=== PATIENT | male | born 1975 | race Asian ===

== ENCOUNTER 2023-03-16 10:48 | Inpatient (IN) | payer BC, SELFPAY ==
[2023-02-25 09:01] VITALS: BMI 26.3
[2023-02-25 10:07] LABS: % Basophils 0.8 % (0-2); % Eosinophils 0.8 % (0-6); % Immature Granulocytes 0.5 % (0-0.5); % Lymphocytes 12.1 % (20.5-51.1); % Monocytes 6.4 % (1.7-9.3); % Neutrophils 79.4 % (42.2-75.2); Absolute Basophils 0.1 10^3/uL (0-0.2); Absolute Eosinophils 0.1 10^3/uL (0-0.7); Absolute Lymphocytes 1.1 10^3/uL (1.2-3.4); Absolute Monocytes 0.6 10^3/uL (0.1-0.6); Absolute Neutrophils 6.9 10^3/uL (1.4-6.5); Hematocrit 46.4 % (39.0-52.0); Mean Corp Hgb Conc. 34.5 g/dL (33.0-37.0); Mean Corpuscular Hgb 30.6 pg (27.0-31.0); Mean Corpuscular Volume 88.7 fL (80.0-94.0); Mean Platelet Volume 10.5 fL (7.4-10.4); Nucleated Red Blood Cells % 0 % (-); Platelet Count 174 10^3/uL (130-400); Red Blood Cell Count 5.23 10^6/uL (4.70-6.10); White Blood Cell Count 8.7 10^3/uL (4.8-10.8)
[2023-02-25 10:14] LABS: INR 1.15
[2023-02-25 10:18] LABS: ALT (SGPT) 45 U/L (0-50); AST (SGOT) 36 U/L (17-59); Albumin 4.4 g/dl (3.5-5.0); Alkaline Phosphatase 57 U/L (38-126); Blood Urea Nitrogen 17 mg/dl (9-20); Calcium 9.8 mg/dl (8.4-10.2); Carbon Dioxide 30 mmol/L (22-30); Chloride 100 mmol/L (98-107); Estimated Creatinine Clearance 106 ml/min; Glucose 97 mg/dl (70-99); Magnesium 2.1 mg/dl (1.6-2.3); Potassium 4.3 mmol/L (3.5-5.1); Sodium 138 mmol/L (135-145); Total Protein 7.2 g/dl (6.3-8.2); eGFR > 60.00
[2023-03-16] VITALS (23 sets, daily range): BP systolic 96–148; BP diastolic 56–97; BMI 24.4
[2023-03-16 08:56] LABS: ACT-LR - POC 353 Seconds (116-155)
[2023-03-16 09:13] LABS: ACT-LR - POC 340 Seconds (116-155)
[2023-03-16 09:31] LABS: ACT-LR - POC 368 Seconds (116-155)
[2023-03-16 10:00] LABS: ACT-LR - POC 210 Seconds (116-155)
--- NOTE | 2023-03-16 11:32 | ITS.EPS ---
Special Projects Manager - EPS Report
EPS
Procedure Report:
ELECTROPHYSIOLOGY REPORT
Date of Procedure: 03/16/23
Primary Care Provider: Rosalee Cotton MD
Primary lifter/driver: Dr Chidi Shaikh
INDICATION:
Recurrent sustained hemodynamically unstable ventricular tachycardia/ventricular fibrillation.
HISTORY:
CAD w/prior LAD stenting (2000, ).
Recent Anterior STEMI (09/25/22) complicated by at home VF arrest with prolonged CPR and multiple defibrillation attempts before ROSC.
Uncertain if primary event was acute myocardial infarction or if this was secondary event after arrhythmic ventricular arrest.
Emergently brought [facility] and ultimately to director geophysical laboratory- mid LAD 100% occlusion/in-stent restenosis, s/p thrombectomy/prox and distal LAD KYLEIGH x2 on 09/25/22. Left main is noted to have 10 to 20% disease, left circumflex nondominant with 10 to 20% diffuse
disease. The right coronary artery is a large-caliber dominant vessel with 10 to 20% diffuse disease noted. He had been intubated and on hypothermia protocol, eventually stabilized and d/c home on 09/29.
Outpatient followup in cardiology office on 10/06. Later that evening, he had a witnessed syncopal event at home, where he was unresponsive and performed CPR for 1 minute before he became responsive. Returned to [facility] ER and while on tele,
developed pulseless VT/Torsades (10/10). CPR was performed and ROSC was achieved. IV amiodarone bolus with drip started. He was transferred to for ICD implant 10/12/22.
He experienced syncope in the setting of recurrent sustained ventricular tachycardia on January 14, 2023 with fast VT/VF over 222 bpm treated with attempted antitachycardia pacing which was unsuccessful followed by a successful 40 J shock. He was
seen and treated at [facility]. Ultimately amiodarone was stopped and he has since been on sotalol at 80 mg twice daily.�
Review of available strips of his events suggest PVC induced VT and polymorphic VT.
�- 2D Echo- (10/11/22)- nml LVSF, EF 50-55%, mild symmetric LVH, mid/apical anterior septal HK, no sig valvular disease
�-Echocardiogram January 10, 2023 shows normal left ventricular size and function with ejection fraction of 55 to 60% and no wall motion abnormality.
He experienced ventricular tachycardia again on March 09, 2023. Review of available electrograms finds PVC resulting in a slight pause for resuming pacing followed by a PVC which triggers ventricular tachycardia. First attempt at ATP fails to
terminate the tachycardia, second attempt transition to tachycardia to ventricular fibrillation which was successfully treated with ICD shock. Of note, he was on sotalol 80 mg twice a day, compliant.
He has had no chest pain.
PROCEDURE:
Medtronic dual-chamber ICD was interrogated and found to have normal function. Ventricular arrhythmia detection was programmed off
Ultrasound Guidance performed by nd was utilized for femoral arterial and venous access.
Intracardiac echocardiogram ([facility]) was utilized for real-time echocardiographic imaging. Echocardiographic imaging finds no wall motion abnormality.
Once arterial access was obtained, heparin was initiated with bolus and infusion to achieve ACT of 350 ms then the Apps[employer] multipolar grid catheter was positioned through the Agilis sheath and navigated to the ascending aorta and then across the
aortic valve into the left ventricular cavity. Extensive high definition mapping via the Grid multipolar catheter and Navex three-dimensional mapping was utilized to create an extensive voltage and activation map in sinus rhythm. There is normal
activation and normal voltages throughout the left ventricular cavity. Care was taken to obtain multiple points along the anterior lateral papillary muscle area and this was all normal.
Next programmed electrical stimulation was performed and with double extrastimuli at [address] cycle lengths there were no inducible arrhythmias. With triple extrastimuli only ventricular fibrillation could be induced, no sustained
ventricular arrhythmias. Next, a new voltage and activation map was performed with ventricular pacing to compare to activation in sinus rhythm. Activation maps remain stable, normal with no areas of slow conduction being identified in either sinus
rhythm or with ventricular pacing at 90 bpm. Next isoproterenol infusion at escalating dose was administered to attempt to elicit spontaneous PVCs which may act as triggers for his arrhythmias but despite escalating dose isoproterenol, only rare
PVCs were observed and these correlated to catheter bump, not spontaneous or drug-induced PVCs. No PVC see trigger for VT or VF was found.
Medtronic dual-chamber ICD was reinterrogated and found to have normal function, ventricular arrhythmia detection was programmed on an original preablation parameters were reprogrammed on. Additional reprogramming of VT and VF therapies with longer
intervals to detect as patient has had nonsustained VT in the past and also reprogramming to more aggressive ATP attempts.
Fluoroscopically there is no change in the appearance of the leads.
Conclusions:
Findings of normal left ventricular function and wall motion with I.C.E. and normal LV activation and voltage with no inducible arrhythmias in baseline state or with isoproterenol infusion.
COMPLICATIONS: None
SUMMARY:
EPS
EPS with drug infusion
Intracardiac echocardiogram
Interrogation and reprogramming of ICD
RECOMMENDATIONS:
-Consider procainamide challenge to evaluate for Brugada syndrome as his baseline EKG is abnormal and suggestive of type II Brugada. However EKG evaluation has been complicated by the fact that he recently had ST segment elevation anterior wall
myocardial infarction.
-Consider Admit for sotalol reloading.
Sotalol was discontinued 72 hours prior to today's procedure.
-Check cardiac MRI
-Overall uncertain regarding etiology of his ventricular arrhythmias. ECGs have not had findings obvious for abnormal ion channel function. Furthermore in retrospect I wonder if his initiating event in September was VT VF resulting in restenosis of
his prior LAD stent and anterior wall KS rather than an initial ischemic/infarct event initiating ventricular arrhythmia because he continues to have ventricular arrhythmias despite revascularization and no evidence to suggest abnormal left
ventricular substrate from infarct/ischemia.
-He may benefit from genetic testing.
Copy to:
Rosalee Cotton MD
Dr Chidi Shaikh
[2023-03-16] MEDS: BETAPACE 120 MG PO ×2 (11:43→22:00)
--- NOTE | 2023-03-16 14:11 | SUR.OPER ---
Procainimide challenge
Pt underwent testing for QT prolongation and brugada syndrome. pt received procainimide infusion, no brugada pattern observed. pt vss throughout infusion. QT prolongation observed and resolving at procedure end. at bedside to review ekg. pt. in
stable condition.
[2023-03-16] MEDS: PRONESTYL 102 MG IV (16:16)
--- NOTE | 2023-03-16 16:26 | CM ---
Chart reviewed. Patient is independent of ADLS, lives with his in a 2 [address], 2 PORTER, 0 DME. Patient currently with no discharge needs. Plan is for the patient to return home. CM to follow
--- NOTE | 2023-03-16 17:06 | ITS.EPS ---
Vp Training - EPS Report
EPS
Procedure Report:
Procedure:
Drug infusion
Date:
March 16, 2023
Indication:
Recurrent sustained ventricular tachycardia/ventricular fibrillation.
History:
CAD w/prior LAD stenting (2000, [place]).
Recent Anterior STEMI (09/25/22) complicated by at home VF arrest with prolonged CPR and multiple defibrillation attempts before ROSC.
Uncertain if primary event was acute myocardial infarction or if this was secondary event after arrhythmic ventricular arrest.
Emergently brought [facility] and ultimately to [employer] [facility]- mid LAD 100% occlusion/in-stent restenosis, s/p thrombectomy/prox and distal LAD KYLEIGH x2 on 09/25/22. Left main is noted to have 10 to 20% disease, left circumflex nondominant with 10 to 20% diffuse
disease. The right coronary artery is a large-caliber dominant vessel with 10 to 20% diffuse disease noted. He had been intubated and on hypothermia protocol, eventually stabilized and d/c home on 09/29.
Outpatient followup in cardiology office on 10/06. Later that evening, he had a witnessed syncopal event at home, where he was unresponsive and performed CPR for 1 minute before he became responsive. Returned to [facility] ER and while on tele,
developed pulseless VT/Torsades (10/10). CPR was performed and ROSC was achieved. IV amiodarone bolus with drip started. He was transferred to for ICD implant 10/12/22.
He experienced syncope in the setting of recurrent sustained ventricular tachycardia on January 14, 2023 with fast VT/VF over 222 bpm treated with attempted antitachycardia pacing which was unsuccessful followed by a successful 40 J shock. He was
seen and treated at [facility]. Ultimately amiodarone was stopped and he has since been on sotalol at 80 mg twice daily.�
Review of available strips of his events suggest PVC induced VT and polymorphic VT.
�- 2D Echo- (10/11/22)- nml LVSF, EF 50-55%, mild symmetric LVH, mid/apical anterior septal HK, no sig valvular disease
�-Echocardiogram January 10, 2023 shows normal left ventricular size and function with ejection fraction of 55 to 60% and no wall motion abnormality.
He experienced ventricular tachycardia again on March 09, 2023.� Review of available electrograms finds PVC resulting in a slight pause for resuming pacing followed by a PVC which triggers ventricular tachycardia.� First attempt at ATP fails to
terminate the tachycardia, second attempt transition to tachycardia to ventricular fibrillation which was successfully treated with ICD shock.� Of note, he was on sotalol 80 mg twice a day, compliant.
He has had no chest pain.
At EP study today he is noninducible, there is no electrophysiologic abnormal substrate with detailed left ventricular mapping, there is no arrhythmia induction on escalating dose isoproterenol infusion.
He presents now for procainamide drug infusion as there is enough of a concern for Brugada pattern EKG to assess response to procainamide/potential Brugada diagnosis.
Admittedly however, EKG in the precordial leads abnormality confounded by recent/subacute ST segment elevation anterior wall myocardial infarction from LAD stent restenosis.
Procedure:
During continuous twelve-lead ECG monitoring using high precordial leads with V1 and V2 placed high at the second intercostal space and lead V3 and V4 placed at the fourth intercostal space parasternally, procainamide infusion of 1 g over 30
minutes was performed. Continuous twelve-lead ECG was observed. Results were mild expected QT interval prolongation maxing out at 475 ms. There is no significant morphologic change in the QRS, ST and T wave morphologies in the precordial leads
from baseline throughout procainamide infusion and in the post infusion completion period.
Results:
There is no ECG procainamide infusion evidence to suggest type I Brugada pattern.
Recommendations:
Lack of development of type I Brugada pattern with procainamide infusion does not definitively exclude Brugada syndrome.
QT interval has not been abnormally prolonged.
With isoproterenol infusion there was no development of polymorphic VT to suggest CPVT and clinically this has not been likely to be the case.
Overall there is no clear ECG evidence to suggest an obvious ion channel abnormality.
EP study earlier today found him to be noninducible for sustained monomorphic VT and substrate mapping did not define any significantly abnormal left ventricular substrate.
Note that RV mapping was not performed.
Continue with plan for increasing sotalol during his hospital stay to 120 mg twice daily
Plan for cardiac MRI prior to discharge home
Plan for outpatient genetic testing
Discussed possibly assessing myocardial perfusion/stress testing as an outpatient.
If he continues to have ventricular arrhythmias and no clear etiology, there could be consideration for taking him back to the laboratory to do more extensive right ventricular map.
I did reprogram pacing parameters (programmed off MVP to avoid pauses, extended AV interval to minimize V pacing, programmed on preference pacing and increased base rate to 70 ppm)
Complications:
None
Copy:
Dr. Stevan Davalos
--- NOTE | 2023-03-16 19:29 | PTCARENOTE ---
Pt received from cath recovery area post VT ablation. Right femoral artery site with dry and intact dressing, no sign of bleeding or hematoma. Left femoral vein site with oozing, no hematoma noted. Dressing changed , oozing stopped. Pt up off
bedrest without problem. Telemetry shows atrial paced rhythm. Plan for cardiac MRI on 03/17.
--- NOTE | 2023-03-16 20:00 | PTCARENOTE ---
Assumed care. Patient in chair. B/L groin dressing soft and dry. A-paced, HR 70. Call mejia in reach
[2023-03-16] MEDS: PLAVIX 75 MG PO (21:59)
[2023-03-16] MEDS: LIPITOR 40 MG PO (21:59)
[2023-03-16] MEDS: LOW STRENGTH ASPIRIN 81 MG PO (21:59)
[2023-03-16] MEDS: TOPROL XL 25 MG PO (23:52)
[2023-03-16] MEDS: ZESTRIL 5 MG PO (23:52)
[2023-03-17] VITALS (11 sets, daily range): BP systolic 82–112; BP diastolic 54–76
[2023-03-17 05:12] LABS: Hematocrit 41.5 % (39.0-52.0); Hemoglobin 14.4 g/dL (13.0-18.0); Mean Corp Hgb Conc. 34.7 g/dL (33.0-37.0); Mean Corpuscular Hgb 30.5 pg (27.0-31.0); Mean Corpuscular Volume 87.9 fL (80.0-94.0); Mean Platelet Volume 10.4 fL (7.4-10.4); Platelet Count 125 10^3/uL (130-400); Red Blood Cell Count 4.72 10^6/uL (4.70-6.10); Red Cell Dist. Width 13.1 % (11.5-14.5); White Blood Cell Count 7.6 10^3/uL (4.8-10.8)
[2023-03-17 05:25] LABS: Blood Urea Nitrogen 14 mg/dl (9-20); Calcium 9.1 mg/dl (8.4-10.2); Carbon Dioxide 23 mmol/L (22-30); Chloride 104 mmol/L (98-107); Estimated Creatinine Clearance > 125 ml/min; Glucose 80 mg/dl (70-99); Magnesium 1.8 mg/dl (1.6-2.3); Sodium 137 mmol/L (135-145); eGFR > 60.00
[2023-03-17] MEDS: BETAPACE 120 MG PO ×2 (08:13→20:08)
[2023-03-17] MEDS: TYLENOL 650 MG PO ×2 (08:24→20:08)
--- NOTE | 2023-03-17 09:11 | W.PN.CARDCBS ---
Addendum entered and electronically signed by Hank Helms MD 03/17/23 11:48:
Patient seen and examined
Agree with CIVIL ENGINEERING DIRECTOR note and assessment
Agree with CIVIL ENGINEERING DIRECTOR plan
No ventricular arrhythmia on monitor overnight
QTc reviewed and stable
Of note we are working up his atypical ST-T morphology in lead V1 V2 which cannot definitively exclude Brugada syndrome
Examination:
Heent NCAT
JVP 6
cor regular
lungs ctab
abd soft nt nd
no ext edema
aao x3
non focal neurologically
PCP: Rosalee Cotton MD
CDY: Chidi Shaikh,
IMPRESSION/PLAN:
Torsades/VT arrest/CAD/ICD implant, 10/12/22 - attempted VT ablation 03/16/23 non inducible
Lack of development of type I Brugada pattern with procainamide infusion does not definitively exclude Brugada syndrome 03/16/23
Tele- A paced, underlying sinus rhythm, no ectopy
Sotalol increased to 120mg bid, Dose #3 this am continue to monitor QTc stable 451
Will check cardiac MRI today
Plan for Outpt genetic testing
Discussed possibly assessing myocardial perfusion/stress testing as an outpatient.
If he continues to have ventricular arrhythmias and no clear etiology, there could be consideration for taking him back to the laboratory to do more extensive right ventricular map. If he has delayed repolarization on his epicardial aspect of the
RV and genetically proven Brugada syndrome would consider epicardial RV ablation if he is refractory to current antiarrhythmic drug therapy. He will follow-up with Dr. De Paz with his outpatient sql engineer and Dr. Shaikh to discuss
further. He will genetic testing for SCN5A gene as outpatient.
CAD/VF Arrest/Anterior STEMI (09/25/22), s/p LAD PCI x2 (09/25/22, [facility]
continue DAPT ASA/Plavix
continue metoprolol xl 25mg/daily, lisinopril 5mg/daily
HLD- continue atorvastatin 40mg/daily
HTN- monitor trends, continue meds as noted
Anoxic brain injury/Short Term Memory loss
3 separate CPR events with ROSC
Anxiety/Depression- seen by Psych at [facility], outpt followup
Original Note:
Today's Communication / Plan
-
continue to QTc monitoring with increased sotalol dosing
cardiac MRI today
Impression / Plan
-
PCP: Rosalee Cotton MD
CDY: Chidi Shaikh,
IMPRESSION/PLAN:
Torsades/VT arrest/CAD/ICD implant, 10/12/22 - attempted VT ablation 03/16/23 non inducible
Lack of development of type I Brugada pattern with procainamide infusion does not definitively exclude Brugada syndrome 03/16/23
Tele- A paced, underlying sinus rhythm, no ectopy
Sotalol increased to 120mg bid, Dose #3 this am continue to monitor QTc stable 451
Will check cardiac MRI today
Plan for Outpt genetic testing
Discussed possibly assessing myocardial perfusion/stress testing as an outpatient.
If he continues to have ventricular arrhythmias and no clear etiology, there could be consideration for taking him back to the laboratory to do more extensive right ventricular map.
CAD/VF Arrest/Anterior STEMI (09/25/22), s/p LAD PCI x2 (09/25/22, [facility], Dr. Gloria Lei- [facility] doc)
continue DAPT ASA/Plavix
continue metoprolol xl 25mg/daily, lisinopril 5mg/daily
HLD- continue atorvastatin 40mg/daily
HTN- monitor trends, continue meds as noted
Anoxic brain injury/Short Term Memory loss
3 separate CPR events with ROSC
Anxiety/Depression- seen by Psych at [facility], outpt followup
PREHOSPITAL DATA:
[facility]- 09/25/22- 100% mid LAD occlusion, just prox to the prior LAD stent
s/p successful thrombectomy, angioplasty and stenting of LAD w/KYLEIGH x2
LVEDP 25, PA 35/15, PCW 12, CI 5.87.
2D Echo- (10/11/22)- nml LVSF, EF 50-55%, mild symmetric LVH, mid/apical anterior septal HK, no sig valvular disease
Progress Note - Clinical Information Systems Director
Subjective
Date of Service: March 17, 2023
no cp, sob
Objective
Labs:
03/17/23 04:52
03/17/23 04:52
Labs
Hgb 14.4 g/dL (13.0-18.0) 03/17/23 04:52
Hct 41.5 % (39.0-52.0) 03/17/23 04:52
Plt Count 125 10^3/uL (130-400) L 03/17/23 04:52
PT 15.0 Sec (11.4-14.6) H 02/25/23 09:45
INR 1.15 02/25/23 09:45
Sodium 137 mmol/L (135-145) 03/17/23 04:52
Potassium 4.0 mmol/L (3.5-5.1) 03/17/23 04:52
BUN 14 mg/dl (9-20) 03/17/23 04:52
Creatinine 0.7 mg/dL (0.7-1.3) 03/17/23 04:52
Glucose 80 mg/dl (70-99) 03/17/23 04:52
Vital Signs and I&O:
Vital Signs
Temp Pulse Resp BP Pulse Ox
98.3 F 70 20 104/54 96
03/17/23 07:01 03/17/23 08:15 03/17/23 07:01 03/17/23 07:04 03/17/23 08:18
Vital Signs
Temp Pulse Resp BP Pulse Ox
98.3 F 70 20 104/54 96
03/17/23 07:01 03/17/23 08:15 03/17/23 07:01 03/17/23 07:04 03/17/23 08:18
Intake & Output
03/15/23 03/16/23 03/17/23 03/18/23
06:59 06:59 06:59 06:59
Intake Total 240 / 240 240 / 240
Balance 240 / 240 240 / 240
Physical Exam
Physical Exam
NAD< AOX3
S1, S2, RRR
CTAB, non labored, no wheeze
SNTND bsx4
b/l groins c/d/i no HT, soft
--- NOTE | 2023-03-17 10:38 | CM ---
Chart reviewed. Patient is independent of ADLS, lives with his in a 2 S[address], 2 PORTER, 0 DME. Patient inquired about financial assistance, I gave him financial assistance office number. Patient currently with no discharge needs. CM to follow
--- NOTE | 2023-03-17 14:57 | PTCARENOTE ---
Pt had cardiac MRI, accompanied and monitored by RN during entire procedure.
--- NOTE | 2023-03-17 19:25 | PTCARENOTE ---
Pt c/o tender groin sites which are intact, no sign of bleeding or hematoma. Telemetry shows atrial paced rhythm at a rate of 70. Plan for sotalol dose #4 tonight.
[2023-03-17] MEDS: LOW STRENGTH ASPIRIN 81 MG PO (20:07)
[2023-03-17] MEDS: PLAVIX 75 MG PO (20:08)
[2023-03-17] MEDS: LIPITOR 40 MG PO (20:08)
--- NOTE | 2023-03-17 22:43 | PTCARENOTE ---
Assumed care. Patent pleasant. Right groin mildly tender, Tylenol given. A-paced HR 70, BP 94/71. EKG completed QTC 470, call mejia in reach
[2023-03-17] MEDS: TOPROL XL 25 MG PO (23:35)
[2023-03-17] MEDS: ZESTRIL 5 MG PO (23:36)
[2023-03-18 04:40] VITALS: BP 117/75
[2023-03-18 07:59] VITALS: BP 112/70
[2023-03-18] MEDS: BETAPACE 120 MG PO (08:14)
--- NOTE | 2023-03-18 08:25 | W.PN.CARDCBS ---
Addendum entered and electronically signed by Hank Helms MD 03/18/23 11:34:
Patient seen and examined
Agree with MEDICAID SPECIALIST note and assessment
Agree with MEDICAID SPECIALIST plan
Telemetry reviewed no further VT
EKG reviewed today QTc less than 500 ms
Continued Brugada pattern in V1 noted
Examination:
HEENT normocephalic atraumatic
JVP 6
Cor regular
Lungs clear to auscultation bilaterally
Abdomen soft nontender positive bowel sounds
No extreme edema
Alert and x 3
HPI: This is a 46y/o Nep[place] male, with PMH CAD w/prior LAD stenting (2000, [place]). 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
LAD 100% occlusion/in-stent restenosis, s/p thrombectomy/prox and distal LAD KLYEIGH x2. 1 week post d/c he arrested at home, found to have pulseless VT/Torsades (10/10), s/p ICD implant.
He's had recurrent syncope/VT with several shocks and started on sotalol.
Presented to EP lab 03/16 for VT ablation, but was non inducible. Admitted for further workup and sotalol increased dose loading.
IMPRESSION/PLAN:
Torsades/VT arrest/CAD/ICD implant, 10/12/22 -
VT ablation- attempted but non inducible
Procainamide infusion post procedure- lack of development of type I Brugada pattern with procainamide infusion- does not definitively exclude Brugada syndrome 03/16/23
Tele- A paced, underlying sinus rhythm, no ectopy
Sotalol increased to 120mg bid, Dose #5 today- QTc 470ms
Cardiac MRI- LV HK, chronic infarction in LAD territory, no evidence for diffuse infiltrative myocardial disease
Outpt genetic testing
Continue sotalol
Discussed possibly assessing myocardial perfusion/stress testing as an outpatient.
This could possibly be Brugada syndrome- looking at today's EKG the pattern is present in V1, V2- await genetic testing for further info
If ventricular arrhythmias persist with no clear etiology, t/c more extensive RV mapping
home today if 10AM EKG with stable QTc
Followup w/Dr. Shaikh as scheduled
CAD/VF Arrest/Anterior STEMI (09/25/22), s/p LAD PCI x2 (09/25/22, [facility], Dr. Gloria Lei- [facility])
continue DAPT ASA/Plavix
continue metoprolol xl 25mg/daily, lisinopril 5mg/daily
HLD- continue atorvastatin 40mg/daily
HTN- monitor trends, continue meds as noted
Anoxic brain injury/Short Term Memory loss
3 separate CPR events with ROSC
Anxiety/Depression- seen by Psych at [facility], outpt followup
Original Note:
Today's Communication / Plan
-
Continue sotalol
outpt genetic testing
home today
Followup with Dr. Shaikh as scheduled
Impression / Plan
-
PCP: Rosalee Cotton MD
CDY: Chidi Shaikh DO
HPI: This is a 46y/o Nep[place] male, with PMH CAD w/prior LAD stenting (2000, [facility]). 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
LAD 100% occlusion/in-stent restenosis, s/p thrombectomy/prox and distal LAD KYLEIGH x2. 1 week post d/c he arrested at home, found to have pulseless VT/Torsades (10/10), s/p ICD implant.
He's had recurrent syncope/VT with several shocks and started on sotalol.
Presented to EP lab 03/16 for VT ablation, but was non inducible. Admitted for further workup and sotalol increased dose loading.
IMPRESSION/PLAN:
Torsades/VT arrest/CAD/ICD implant, 10/12/22 -
VT ablation- attempted but non inducible
Procainamide infusion post procedure- lack of development of type I Brugada pattern with procainamide infusion- does not definitively exclude Brugada syndrome 03/16/23
Tele- A paced, underlying sinus rhythm, no ectopy
Sotalol increased to 120mg bid, Dose #5 today- QTc 470ms
Cardiac MRI- LV HK, chronic infarction in LAD territory, no evidence for diffuse infiltrative myocardial disease
Outpt genetic testing
Continue sotalol
Discussed possibly assessing myocardial perfusion/stress testing as an outpatient.
This could possibly be Brugada syndrome- looking at today's EKG the pattern is present in V1, V2- await genetic testing for further info
If ventricular arrhythmias persist with no clear etiology, t/c more extensive RV mapping
home today if 10AM EKG with stable QTc
Followup w/Dr. Shaikh as scheduled
CAD/VF Arrest/Anterior STEMI (09/25/22), s/p LAD PCI x2 (09/25/22, [facility], Dr. Gloria Lei- [facility] doc)
continue DAPT ASA/Plavix
continue metoprolol xl 25mg/daily, lisinopril 5mg/daily
HLD- continue atorvastatin 40mg/daily
HTN- monitor trends, continue meds as noted
Anoxic brain injury/Short Term Memory loss
3 separate CPR events with ROSC
Anxiety/Depression- seen by Psych at [facility], outpt followup
Progress Note - [employer]
Subjective
Date of Service: March 18, 2023
Ready to go home and get back to work
denies cp/palps/dyspnea
oob ambulating
groin sites without pain
Objective
Labs:
03/17/23 04:52
03/17/23 04:52
Labs
Hgb 14.4 g/dL (13.0-18.0) 03/17/23 04:52
Hct 41.5 % (39.0-52.0) 03/17/23 04:52
Plt Count 125 10^3/uL (130-400) L 03/17/23 04:52
PT 15.0 Sec (11.4-14.6) H 02/25/23 09:45
INR 1.15 02/25/23 09:45
Sodium 137 mmol/L (135-145) 03/17/23 04:52
Potassium 4.0 mmol/L (3.5-5.1) 03/17/23 04:52
BUN 14 mg/dl (9-20) 03/17/23 04:52
Creatinine 0.7 mg/dL (0.7-1.3) 03/17/23 04:52
Glucose 80 mg/dl (70-99) 03/17/23 04:52
Vital Signs and I&O:
Vital Signs
Temp Pulse Resp BP Pulse Ox
97.5 F 71 16 117/75 96
03/18/23 07:59 03/18/23 07:59 03/18/23 07:59 03/18/23 04:40 03/18/23 07:59
Vital Signs
Temp Pulse Resp BP Pulse Ox
97.5 F 71 16 117/75 96
03/18/23 07:59 03/18/23 07:59 03/18/23 07:59 03/18/23 04:40 03/18/23 07:59
Intake & Output
03/16/23 03/17/23 03/18/23 03/19/23
06:59 06:59 06:59 06:59
Intake Total 240 / 240 720 / 720
Balance 240 / 240 720 / 720
Physical Exam
Physical Exam
AAOx3, MAEE 5/5
RRR S1 S2 no murmurs
CTA bilat, non labored
soft abd, + bs
bilat groin sites without ht/bleeding, non tender
bilat extremities w/palpable distal pulses, no edema
--- NOTE | 2023-03-18 09:11 | PTCARENOTE ---
assumed care of pt from previous shift RN, Apaced rhythm on tele, VSS, + peripheral pulses, no edema. Lungs clear, pox 96% on RA. Tolerating PO intake, voids spontaneously. Cath sites intact, piv flushes easily. Plan of care reviewed w the pt and
questions encouraged.
--- NOTE | 2023-03-18 09:51 | W.DS.TRANS ---
DC Summary - Social Service Liaison
-
Discharge Instructions:
Discharge Diagnosis/Procedures Ventricular Tachycardia (VT), non inducible VT
on EP study, Sotalol load
Diet Low Cholesterol,Low Sodium
Driving Restrictions No driving for 24 hours
Instructions:
Stand-Alone Forms: DC Instructions- Cath/EP Lab
Return to Work
Changes to Home Medications: Yes
Discharge Medications:
DC Medications w/original date entered in [facility]
aspirin 81 mg chewable tablet 81 mg PO HS Blood Clot Prevention/Tx 10/12/22
atorvastatin 40 mg tablet 40 mg PO HS High Cholesterol 10/12/22
lisinopril 5 mg tablet 5 mg PO HS Blood Pressure 10/12/22
cholecalciferol (vitamin D3) 25 mcg (1,000 unit) tablet (Vitamin D3) 25 mcg PO DAILY Supplement 02/24/23
clopidogrel 75 mg tablet (Plavix) 75 mg PO HS Blood Clot Prevention/Tx 02/24/23
metoprolol succinate 25 mg tablet,extended release 24 hr 25 mg PO HS Blood Pressure 02/24/23
nitroglycerin 0.4 mg sublingual tablet 0.4 mg sublingual Q5-15M PRN chest pain 02/25/23
sotalol 120 mg tablet 120 mg PO BID #180 tabs 03/18/23
Home Medication Changes
DOSE INCREASE: Sotalol
Pending Results: No
--- NOTE | 2023-03-18 10:41 | PTCARENOTE ---
EKG completed as ordered.
--- NOTE | 2023-03-18 11:08 | PTCARENOTE ---
pt is ordered for discharge. Tele monitor and IV line removed. Follow up appointments, medication list and discharge instructions reviewed w the pt. Questions encouraged. Pt is awaiting family for ride home.
--- NOTE | 2023-03-18 12:42 | PTCARENOTE ---
pt family to bedside. questions encouraged. pt was discharged home.
== END 2023-03-18 12:45 | disposition home or self-care (01) | DRG 274 ==
LOC: IVU 10:48
PROVIDERS: Nurse Practitioner Adult Health; ADMITTING PHYSICIAN Internal Medicine Cardiovascular Disease; FAMILY PHYSICIAN Family Medicine
PROC: 02K83ZZ Map Conduction Mechanism, Percutaneous Approach (ICD-10-PCS; 2023-03-16)
PROC: 5A2204Z Restoration of Cardiac Rhythm, Single (ICD-10-PCS; 2023-03-16)
PROC: B24BZZZ Ultrasonography of Heart with Aorta (ICD-10-PCS; 2023-03-16)
PROC: 4A0234Z Measurement of Cardiac Electrical Activity, Percutaneous Approach (ICD-10-PCS; 2023-03-16)
PROC: 4A023FZ Measurement of Cardiac Rhythm, Percutaneous Approach (ICD-10-PCS; 2023-03-16)
DX: I47.21 Torsades de pointes (principal); G93.1 Anoxic brain damage, not elsewhere classified; I49.01 Ventricular fibrillation; I46.2 Cardiac arrest due to underlying cardiac condition; I25.10 Atherosclerotic heart disease of native coronary artery without angina pectoris; I12.9 Hypertensive chronic kidney disease with stage 1 through stage 4 chronic kidney disease, or unspecified chronic kidney disease; N18.9 Chronic kidney disease, unspecified; E78.5 Hyperlipidemia, unspecified; M51.26 Other intervertebral disc displacement, lumbar region; F32.A Depression, unspecified; F41.9 Anxiety disorder, unspecified; I25.2 Old myocardial infarction; Z79.02 Long term (current) use of antithrombotics/antiplatelets; Z79.82 Long term (current) use of aspirin; Z79.899 Other long term (current) drug therapy; Z86.73 Personal history of transient ischemic attack (TIA), and cerebral infarction without residual deficits; Z95.5 Presence of coronary angioplasty implant and graft; Z95.810 Presence of automatic (implantable) cardiac defibrillator
CPT/HCPCS: 36415; 71046; 75561; 80048; 80053; 83735; 85025; 85027; 85347; 85610; 86850; 86900; 86901; 93005; 93620; 93623; A9585; C1730; C1732; C1759; C1766; C1769; C1892; C1894